=== PATIENT | male | born 1975 | race Caucasian/White ===

== ENCOUNTER 2023-09-01 13:28 | Inpatient (IN) | payer SELFPAY ==
[~2023-09-01] VITALS: Ht 185.4 cm; Wt 137.5 kg
[2023-09-01] MEDS ORDERED: BASAGLAR K100 UNIT/3 SC (17:28)
[2023-09-01] MEDS ORDERED: HUMALOG KW100 UNIT/1 (17:29)
[2023-09-01] MEDS ORDERED: MULVITA PO (17:29)
[2023-09-01] MEDS ORDERED: FISH OIL 1,0001 EA10 PO (17:30)
[2023-09-01] MEDS ORDERED: Vitamin B-12250 MCG PO (17:31)
[2023-09-01 17:32] LABS: Bun/Creatinine Ratio 28.3 (12.0-20.0); Calcium, Blood 7.6 mg/dL (8.5-10.1); Creatinine, Blood 2.05 mg/dL (0.60-1.20); Potassium, Blood 3.8 mmol/L (3.5-5.5)
[2023-09-01] MEDS ORDERED: PYRI100 PO (17:32)
[2023-09-01 17:33] LABS: U Amphetamine Screen Not Detected; U Barbituate Screen Not Detected; U Benzodiazapine Screen Not Detected; U Buprenorphine Screen Not Detected; U Cannabinoids Screen Not Detected; U Cocaine Screen Not Detected; U Methadone Screen Not Detected; U Methamphetamine Screen Not Detected; U Opiates Screen Not Detected; U Oxycodone Screen Not Detected; U Phencyclidine Screen Not Detected; U Propoxyphene Screen Not Detected
[2023-09-01] MEDS ORDERED: VITAMIN D350 MC3 PO (17:33)
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
[2023-09-01 18:46] VITALS: BP 107/63
[2023-09-02] VITALS (7 sets, daily range): BP systolic 78–115; BP diastolic 54–72
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
[2023-09-02 02:19] LABS: Adenovirus F 40/41 Not Detected (NOT DETECT); Astrovirus Not Detected (NOT DETECT); Campylobacter Sp Not Detected (NOT DETECT); Cryptosporidium Not Detected (NOT DETECT); Cyclospora Cayetanensis Not Detected (NOT DETECT); E. Coli O157 Not Detected (NOT DETECT); Entamoeba Histolytica Not Detected (NOT DETECT); Enteroaggregative E. coli-EAEC Not Detected (NOT DETECT); Enteropathogenic E. coli-EPEC Not Detected (NOT DETECT); Enterotoxigenic E. coli-ETEC Detected (NOT DETECT); Giardia Lamblia Not Detected (NOT DETECT); Norovirus GI/GII Not Detected (NOT DETECT); Plesiomonas Shigelloides Not Detected (NOT DETECT); Rotavirus A Not Detected (NOT DETECT); Salmonella Sp Not Detected (NOT DETECT); Sapovirus Not Detected (NOT DETECT); Shiga Toxin-prod E. coli-STEC Not Detected (NOT DETECT); Shigella/Enteroin E. coli-EIEC Not Detected (NOT DETECT); Vibrio Cholerae Not Detected (NOT DETECT); Vibrio Sp Not Detected (NOT DETECT); Yersinia Enterocolitica Not Detected (NOT DETECT)
[2023-09-02 02:33] LABS: BASOPHILS ABSOLUTE AUTO 0.04 K/mm3 (0.00-0.23); BASOPHILS PERCENT AUTO 1 % (0-2); EOSINOPHILS ABSOLUTE AUTO 0.01 K/mm3 (0.00-0.68); EOSINOPHILS PERCENT AUTO 0 % (0-6); Hematocrit 27.5 % (37.0-53.0); Hemoglobin 9.5 g/dL (13.5-17.5); IMMATURE GRAN ABSOLUTE AUTO 0.11 K/mm3 (0.00-0.10); IMMATURE GRAN PERCENT AUTO 1 % (0-1); LYMPHOCYTES ABSOLUTE AUTO 0.47 K/mm3 (0.84-5.20); LYMPHOCYTES PERCENT AUTO 5 % (21-46); MONOCYTES ABSOLUTE AUTO 0.54 K/mm3 (0.16-1.47); MONOCYTES PERCENT AUTO 6 % (4-13); Mean Corpuscular HGB 27.9 pg (26.0-34.0); Mean Corpuscular HGB Conc 34.5 g/dL (31.5-36.5); Mean Corpuscular Volume 81 fL (80-100); Mean Platelet Volume 10.7 fL (9.1-12.4); NEUTROPHILS ABSOLUTE AUTO 7.48 K/mm3 (1.96-9.15); NEUTROPHILS PERCENT AUTO 87 % (41-73); Platelet Count 126 K/mm3 (150-400); RDW Standard Deviation 38.1 fL (35.1-46.3); White Blood Cell Count 8.65 K/mm3 (4.00-11.30)
[2023-09-02 03:03] LABS: Magnesium, Blood 1.8 mg/dL (1.6-2.4)
[2023-09-02 03:04] LABS: Albumin, Blood 2.2 g/dL (3.4-5.0); Albumin/Globulin Ratio 0.6 (0.8-1.8); Bilirubin, Total 0.8 mg/dL (0.1-1.0); Bun/Creatinine Ratio 29.6 (12.0-20.0); Calcium, Blood 7.6 mg/dL (8.5-10.1); Creatinine, Blood 1.99 mg/dL (0.60-1.20); Globulin, Blood 3.9 g/dL (2.2-4.0); Potassium, Blood 3.6 mmol/L (3.5-5.5); Total Protein, Blood 6.1 g/dL (6.4-8.2)
--- NOTE | 2023-09-02 03:56 | NUR ---
MANAGER OF MEDICAL SUMMARY WAS ADMITTED YESTERDAY DAY SHIFT FROM [facility] IN [place] WITH DX SEPSIS. ALSO DURING ASSESSMENT, CARDIAC ISSUES WERE NOTED. ELEVATED TROPONIN LEVELS. FOLLOW UP BLOOD DRAWS REVEALED TROP LEVEL DROPPING. BUT MED TELE CONT WITH A FIB. DURING THE NIGHT TELE REPORTED A FIB IN THE 100'S AND INCREASED TO THE 140'S. AND CALL RECEIVED FROM [place] OF POSITIVE BLD CULTURE: GM + COCCI IN CHAINS. CURRENTLY ON ANTIBIOTICS. MD NOTIFIED, MD REVIEWED CHART. ORDERED 2.5 MG LOPRESSOR IV FOR HR. MED EFFECTIVE. APPLICATION MANAGER REPORTED HR DOWN TO 109 - 114. AND PT LESS ANXIOUS. PT WAS PLAECD ON CONTACT [facility] UNTIL LABS RULED OUT C DIFF. LABS BACK, [facility] DC'D. HAS BEEN RESTING QUIETLY WITH OCCASIONAL INTERRUPTIONS. CALL LIGHT IN REACH. WILL CONTINUE TO MONITOR
--- NOTE | 2023-09-02 11:58 | NUR ---
REPORT GIVEN TO VIANCA COLLIER.
[2023-09-03 02:00] VITALS: BP 108/80
--- NOTE | 2023-09-03 04:29 | NUR ---
SHIFT SUMMARY PT IS A&OX4, FLAT EFFECT. NORMOTENSIVE, A-FIB WITH BBB IN 120'S (VIA FIRE PATROLLER), AFEBRILE, O2 SATS >95% ON RA. PT DENIES CHEST PRESSURE/PAIN THIS SHIFT, DENIES PAIN. TOLERATING ADA DIET. VOIDING INDEPENDENTLY IN URINAL, ADEQUATE, STRAW COLORED UOP. NO BM THIS SHIFT. SBA. BED ALARM SET FOR PATIENTS SAFETY. FIRE SAFETY CHECKS COMPLETED.
[2023-09-03 05:51] LABS: BASOPHILS ABSOLUTE AUTO 0.02 K/mm3 (0.00-0.23); BASOPHILS PERCENT AUTO 0 % (0-2); EOSINOPHILS PERCENT AUTO 0 % (0-6); Hematocrit 25.5 % (37.0-53.0); Hemoglobin 8.7 g/dL (13.5-17.5); IMMATURE GRAN ABSOLUTE AUTO 0.15 K/mm3 (0.00-0.10); IMMATURE GRAN PERCENT AUTO 2 % (0-1); LYMPHOCYTES ABSOLUTE AUTO 0.73 K/mm3 (0.84-5.20); LYMPHOCYTES PERCENT AUTO 8 % (21-46); MONOCYTES ABSOLUTE AUTO 0.57 K/mm3 (0.16-1.47); MONOCYTES PERCENT AUTO 6 % (4-13); Mean Corpuscular HGB 27.9 pg (26.0-34.0); Mean Corpuscular HGB Conc 34.1 g/dL (31.5-36.5); Mean Corpuscular Volume 82 fL (80-100); Mean Platelet Volume 11.4 fL (9.1-12.4); NEUTROPHILS ABSOLUTE AUTO 8.06 K/mm3 (1.96-9.15); NEUTROPHILS PERCENT AUTO 85 % (41-73); Platelet Count 133 K/mm3 (150-400); RDW Coefficient Variation 13.4 % (11.7-14.2); RDW Standard Deviation 39.9 fL (35.1-46.3); Red Blood Cell Count 3.12 M/mm3 (4.30-5.90); White Blood Cell Count 9.53 K/mm3 (4.00-11.30)
[2023-09-03 06:50] LABS: Anion Gap 10 mmol/L (6-16); Blood Urea Nitrogen 62 mg/dL (8-24); Bun/Creatinine Ratio 34.4 (12.0-20.0); CO2, Blood 19 mmol/L (21-32); Calcium, Blood 7.6 mg/dL (8.5-10.1); Chloride, Blood 100 mmol/L (98-108); Glomerular Filtration Rate 46 (60-); Glucose, Blood 209 mg/dL (70-99); Magnesium, Blood 2.2 mg/dL (1.6-2.4); Phosphorus, Blood 2.2 mg/dL (2.5-4.9); Potassium, Blood 3.6 mmol/L (3.5-5.5); Sodium, Blood 129 mmol/L (136-145)
[2023-09-03 07:15] VITALS: BP 124/81
[2023-09-03 09:01] LABS: Percent Saturation 11.2 % (20.0-50.0)
[2023-09-03 15:00] VITALS: BP 107/65
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
[2023-09-03 19:19] VITALS: BP 108/70
--- NOTE | 2023-09-04 05:19 | NUR ---
SHIFT SUMMARY PATIENT IS A&OX4, PLEASANT AND COOPERATIVE WITH ALL CARES. NORMOTENSIVE, A-FIB 90-110'S, AFEBRILE, 02 >95% ON RA. ON TELEMETRY, NO EVENTS OVERNIGHT. C/O PAIN IN HIS RLE, MANAGED WITH PRN TYLENOL. TOLERATING AN ADA DIET, NO N/V. TOOK A SHOWER BEFORE BED. VOIDING INDEPENDENTLY IN URINAL AT BEDSIDE. ADEQUATE, CONCENTRATED UOP. NO BM THIS SHIFT. SLEPT THROUGHT THE NIGHT. BED IN LOWEST POSITION, CALL LIGHT WITHIN REACH. CALLS APPROPRIATELY FOR NEEDS. FIRE SAFETY CHECKS COMPLETED.
[2023-09-04 05:50] VITALS: BP 118/69
[2023-09-04 06:05] LABS: Hematocrit 26.4 % (37.0-53.0); Mean Corpuscular HGB 28.1 pg (26.0-34.0); Mean Corpuscular HGB Conc 34.1 g/dL (31.5-36.5); Mean Corpuscular Volume 83 fL (80-100); Mean Platelet Volume 11.1 fL (9.1-12.4); Platelet Count 162 K/mm3 (150-400); RDW Coefficient Variation 13.8 % (11.7-14.2); RDW Standard Deviation 41.4 fL (35.1-46.3)
[2023-09-04 06:20] LABS: Albumin, Blood 1.9 g/dL (3.4-5.0); Anion Gap 7 mmol/L (6-16); Blood Urea Nitrogen 56 mg/dL (8-24); Bun/Creatinine Ratio 39.2 (12.0-20.0); CO2, Blood 21 mmol/L (21-32); Calcium, Blood 7.8 mg/dL (8.5-10.1); Chloride, Blood 103 mmol/L (98-108); Creatinine, Blood 1.43 mg/dL (0.60-1.20); Glomerular Filtration Rate 61 (60-); Glucose, Blood 170 mg/dL (70-99); Phosphorus, Blood 2.5 mg/dL (2.5-4.9); Potassium, Blood 3.7 mmol/L (3.5-5.5); Sodium, Blood 131 mmol/L (136-145)
[2023-09-04 06:25] LABS: BAND PERCENT MAN 10 % (0-8); BASOPHILS ABSOLUTE MAN 0.11 K/mm3 (0.00-0.23); BASOPHILS PERCENT MAN 1 % (0-2); EOSINOPHILS ABSOLUTE MAN 0.11 K/mm3 (0.00-0.68); EOSINOPHILS PERCENT MAN 1 % (0-6); LYMPHOCYTES ABSOLUTE MAN 0.99 K/mm3 (0.84-5.20); LYMPHOCYTES PERCENT MAN 9 % (21-46); MONOCYTES ABSOLUTE MAN 0.88 K/mm3 (0.16-1.47); MONOCYTES PERCENT MAN 8 % (4-13); NEUTROPHILS ABSOLUTE MAN 8.91 K/mm3 (1.96-9.15); SEG NEUTROPHILS PERCENT MAN 71 % (41-73); TOTAL CELLS COUNTED 100
[2023-09-04 07:48] VITALS: BP 129/84
[2023-09-04] MEDS ORDERED: ASCORBIC ACID500 MG PO (09:48)
[2023-09-04] MEDS ORDERED: FERSU300 PO (09:49)
[2023-09-04] MEDS ORDERED: DOCU100 PO (09:49)
[2023-09-04] MEDS ORDERED: METO50 PO (09:50)
[2023-09-04] MEDS ORDERED: LACT PO (09:50)
[2023-09-04] MEDS ORDERED: CEFU500T30 PO (09:51)
[2023-09-04] MEDS ORDERED: XARELTO20 MG PO (09:51)
--- NOTE | 2023-09-04 11:45 | NUR ---
PT DISCHARGED AT 1100. NO DISTRESS NOTED AND ALL PAPERWORK REVIEWED AND EDUCATIONAL MATERIAL SENT WITH PT. PT AMBULATING INDEPENDENTLY AND GIVEN RIDE TO [facility] VIA WHEEL CHAIR. PERSONAL BELONGINGS WITH PT. FRIEND TO TRANSPORT HOME.
== END 2023-09-04 11:00 | disposition home or self-care (01) | DRG 871 ==
LOC: MEDS 13:28
PROVIDERS: Internal Medicine; Nurse Practitioner Acute Care; ADMIT Family Medicine
PROC: 3E03329 Introduction of Other Anti-infective into Peripheral Vein, Percutaneous Approach (ICD-10-PCS; principal; 2023-09-01)
PROC: B24BYZZ Ultrasonography of Heart with Aorta using Other Contrast (ICD-10-PCS; 2023-09-02)
DX: A41.89 Other specified sepsis (principal); I21.A1 Myocardial infarction type 2; L03.115 Cellulitis of right lower limb; I42.0 Dilated cardiomyopathy; N17.9 Acute kidney failure, unspecified; E87.1 Hypo-osmolality and hyponatremia; A04.1 Enterotoxigenic Escherichia coli infection; I48.91 Unspecified atrial fibrillation; D50.9 Iron deficiency anemia, unspecified; D63.8 Anemia in other chronic diseases classified elsewhere; I27.20 Pulmonary hypertension, unspecified; E66.01 Morbid (severe) obesity due to excess calories; E11.649 Type 2 diabetes mellitus with hypoglycemia without coma; G47.33 Obstructive sleep apnea (adult) (pediatric); E83.42 Hypomagnesemia; E83.39 Other disorders of phosphorus metabolism; Z89.421 Acquired absence of other right toe(s); Z79.4 Long term (current) use of insulin; Z68.39 Body mass index [BMI] 39.0-39.9, adult
CPT/HCPCS: 36415; 73630; 76770; 80048; 80053; 80069; 82550; 82607; 82728; 82746; 82947; 83540; 83550; 83605; 83735; 84484; 85025; 87040; 87507; 93971; 94762; A9270; C8929; J0690; J1644; J1815; J2405; J3475; J7030; J7060; Q9957